=== PATIENT | female | born 1980 | race Two or more races ===

== ENCOUNTER 2023-05-01 12:32 | Emergency (ER) | payer OTHER ==
[2023-05-01 12:54] VITALS: BMI 24.1
[2023-05-01] MEDS ORDERED: FAMOTIDINE 20 MG/50 ML IVPB 20 MG/50 ML MG IVPB ONE (15:08)
[2023-05-01] MEDS: SODIUM CHLORIDE 0.9% 500 ML INFUS.BAG IV ONE (15:11)
[2023-05-01] MEDS: FAMOTIDINE 20 MG/50 ML IVPB 20 MG/50 ML MG IVPB ONE (15:12)
[2023-05-01 15:15] LABS: URINE APPEARANCE CLEAR; URINE BILIRUBIN NEGATIVE (NEGATIVE); URINE COLOR YELLOW; URINE GLUCOSE (UA) NEGATIVE (NEGATIVE); URINE KETONE NEGATIVE (NEGATIVE); URINE LEUK ESTERASE NEGATIVE (NEGATIVE); URINE NITRITE NEGATIVE (NEGATIVE); URINE PROTEIN NEGATIVE (NEGATIVE); URINE UROBILINOGEN 0.2 mg/dL (0.2-1.0)
[2023-05-01 15:16] LABS: BASO % 0.7 % (0-2.0); EOS % 1.2 % (0-4.5); HEMATOCRIT 38.5 % (32.4-45.2); HEMOGLOBIN 13.1 GM/dL (10.7-15.3); LYMPH % 28.6 % (8-40); MCH 30.7 pg (25.7-33.7); MCHC 34.1 g/dl (32.0-36.0); MEAN CELL VOLUME 90.1 fl (80-96); MEAN PLT VOLUME 7.6 fl (7.5-11.1); MONO % 6.2 % (3.8-10.2); NEUT % 63.3 % (42.8-82.8); PLATELET COUNT 337 10^3/uL (134-434); RBC 4.28 M/mm3 (3.60-5.2); RDW 12.7 % (11.6-15.6); WHITE BLOOD COUNT 7.2 K/mm3 (4.0-10.0)
[2023-05-01 15:18] LABS: HCG,QUALITATIVE URINE Negative
[2023-05-01 15:31] LABS: POTASSIUM 4.2 mmol/L (3.5-5.1)
[2023-05-01 15:34] LABS: CALCIUM 9.5 mg/dL (8.5-10.1)
[2023-05-01 15:35] LABS: ALBUMIN 3.7 g/dl (3.4-5.0); BLOOD UREA NITROGEN 12.1 mg/dL (7-18)
[2023-05-01 15:38] LABS: CREATININE 0.6 mg/dL (0.55-1.3)
[2023-05-01 15:39] LABS: TOT PROT 7.3 g/dl (6.4-8.2)
[2023-05-01 15:40] LABS: BILIRUBIN,TOTAL 0.4 mg/dL (0.2-1)
[2023-05-01] MEDS ORDERED: IOHEXOL (OMNIPAQUE PO) 12 MG/ML - 500 ML BOTTLE PO ONE (17:03)
[2023-05-01 21:32] VITALS: BP 124/82; PULSE 62; RESP 19; TEMP 98.1
== END 2023-05-01 21:33 | disposition home or self-care (01) ==
LOC: JER 12:32
PROC: 3E033GC Introduction of Other Therapeutic Substance into Peripheral Vein, Percutaneous Approach (ICD-10-PCS; principal; 2023-05-01)
DX: R10.12 Left upper quadrant pain (principal); R10.32 Left lower quadrant pain; K59.00 Constipation, unspecified
CPT/HCPCS: 36415; 74021-TC-FY; 74177-TC; 80053; 81003; 84703; 85025; 87086; 96365; 99285-25; Q9967